=== PATIENT | female | born 1970 | race Caucasian/White ===

== ENCOUNTER 2017-02-16 21:31 | Emergency (ER) | payer MEDICAID ==
[~2017-02-16] VITALS: Ht 157.5 cm; Wt 57.8 kg
[~2017-02-16 21:31] MED LIST: ALPR0.25 PO; CELE50CA PO; FURO-92 PO; FURO-93 PO; GABA300C PO; METH-356 PO; OXYC10TA6 PO; SPIR50TA2 PO; SUMA100T3 PO; TIZA4CAP PO
[2017-02-16 21:33] VITALS: BP 119/72
[2017-02-16] MEDS ORDERED: SILVER SULF. CRM 1% , 25GM ONE (22:23)
[2017-02-16] MEDS ORDERED: SILVER SULF. CRM 1% , 25GM TP ONE (22:30)
== END 2017-02-16 22:40 | disposition home or self-care (01) ==
LOC: ED 22:35
DX: T23.151A Burn of first degree of right palm, initial encounter (principal); T23.161A Burn of first degree of back of right hand, initial encounter; T31.0 Burns involving less than 10% of body surface; X08.8XXA Exposure to other specified smoke, fire and flames, initial encounter; Y93.89 Activity, other specified; Y99.8 Other external cause status; Y92.89 Other specified places as the place of occurrence of the external cause
CPT/HCPCS: 16020

== ENCOUNTER 2017-03-19 17:55 | Emergency (ER) | payer MEDICAID ==
[~2017-03-19] VITALS: Ht 157.5 cm; Wt 56.4 kg
[2017-03-19 18:43] LABS: ASPARTATE AMINO TRANSFERASE 23 U/L (15-37); BLOOD UREA NITROGEN 12 mg/dL (7-18)
[2017-03-19 19:22] VITALS: BP 106/82
== END 2017-03-19 19:24 | disposition home or self-care (01) ==
LOC: ED 19:00
DX: R60.0 Localized edema (principal); Z88.5 Allergy status to narcotic agent; Z88.8 Allergy status to other drugs, medicaments and biological substances
CPT/HCPCS: 36415; 80053; 85025; 99285

== ENCOUNTER 2017-04-09 20:05 | Emergency (ER) | payer MEDICAID ==
[~2017-04-09] VITALS: Ht 157.5 cm; Wt 59.6 kg
[2017-04-09 20:06] VITALS: BP 100/72
== END 2017-04-09 20:52 | disposition home or self-care (01) ==
LOC: ED 20:15
DX: K02.9 Dental caries, unspecified (principal)
CPT/HCPCS: 99283

== ENCOUNTER 2017-05-02 14:13 | Emergency (ER) | payer MEDICAID ==
[~2017-05-02] VITALS: Ht 157.5 cm; Wt 56.4 kg
[2017-05-02 14:31] VITALS: BP 114/76
[2017-05-02] MEDS ORDERED: PROPARACAINE OPHTH 0.5%, 15ML ONE (14:54)
[2017-05-02] MEDS ORDERED: FLUORESCEIN OPHTHALMIC 1 MG STRIP ONE (14:54)
[2017-05-02] MEDS ORDERED: EYE WASH SOLUTION 120ML ONE (15:10)
== END 2017-05-02 16:20 | disposition home or self-care (01) ==
LOC: ED 15:16
DX: H57.11 Ocular pain, right eye (principal)
CPT/HCPCS: 99283

== ENCOUNTER 2017-10-06 15:58 | Emergency (ER) | payer MEDICAID ==
[~2017-10-06] VITALS: Ht 152.4 cm; Wt 61.0 kg
[~2017-10-06 15:58] MED LIST changes: -BUPIVACAINE/PF 0.5% ONE; -LIDOCAINE 1%, 20ML ONE; -TRIAMCINOLONE ACETONIDE 40 MG/ML, 1ML ONE
[2017-10-06 16:25] VITALS: BP 113/75
== END 2017-10-06 18:16 | disposition home or self-care (01) ==
LOC: ED 18:06
DX: S60.221A Contusion of right hand, initial encounter (principal); K21.9 Gastro-esophageal reflux disease without esophagitis; M19.90 Unspecified osteoarthritis, unspecified site; J45.909 Unspecified asthma, uncomplicated; Z90.721 Acquired absence of ovaries, unilateral; W19.XXXA Unspecified fall, initial encounter; Y93.89 Activity, other specified; Y92.410 Unspecified street and highway as the place of occurrence of the external cause; Y99.9 Unspecified external cause status
CPT/HCPCS: 99284

== ENCOUNTER → 2017-10-06 | Outpatient (CLI) | payer MEDICAID ==
[~2017-10-06] MED LIST changes: +BUPIVACAINE/PF 0.5% ONE; +LIDOCAINE 1%, 20ML ONE; +TRIAMCINOLONE ACETONIDE 40 MG/ML, 1ML ONE
== END | disposition home or self-care (01) ==
LOC: RAD 12:19
PROVIDERS: ATTEND Internal Medicine
DX: M12.852 Other specific arthropathies, not elsewhere classified, left hip (principal); M12.551 Traumatic arthropathy, right hip
CPT/HCPCS: 77002; J3301; J3490

== ENCOUNTER 2017-12-30 16:15 | Emergency (ER) | payer MEDICAID ==
[~2017-12-30] VITALS: Ht 157.5 cm; Wt 61.5 kg
[~2017-12-30 16:15] MED LIST changes: +BACL-19 PO; +CEPH-368 PO; +ESOM40CA PO; +OXYC5CAP2 PO; +PREG100C PO
[2017-12-30 16:30] VITALS: BP 129/81
== END 2017-12-30 19:05 | disposition home or self-care (01) ==
LOC: ED 18:27
DX: M48.02 Spinal stenosis, cervical region (principal); M54.2 Cervicalgia; J45.909 Unspecified asthma, uncomplicated; G89.29 Other chronic pain
CPT/HCPCS: 72050; 99284; J7512

== ENCOUNTER → 2018-01-22 | Outpatient (CLI) | payer MEDICAID | END | disposition home or self-care (01) | LOC: RAD 10:14 | PROVIDERS: ATTEND Physician Assistant | DX: K80.20 Calculus of gallbladder without cholecystitis without obstruction (principal); E04.2 Nontoxic multinodular goiter; J31.0 Chronic rhinitis; R68.81 Early satiety; F17.210 Nicotine dependence, cigarettes, uncomplicated | CPT/HCPCS: 76536; 76700 ==

== ENCOUNTER 2018-03-22 17:12 | Emergency (ER) | payer MEDICAID ==
[~2018-03-22] VITALS: Ht 157.5 cm; Wt 60.0 kg
[2018-03-22] MEDS ORDERED: METH-356 PO (18:21)
[2018-03-22] MEDS ORDERED: POLY17PO5 PO (18:21)
[2018-03-22] MEDS ORDERED: OXYC5CAP2 PO (18:21)
[2018-03-22 19:14] LABS: BASOPHILS # (AUTO) 0.01 x10^3/uL (0-0.1); BASOPHILS % (AUTO) 0 % (0-1); EOSINOPHILS # (AUTO) 0.11 x10^3/uL (0-0.4); EOSINOPHILS % (AUTO) 2 % (1-7); LYMPHOCYTES # (AUTO) 1.98 x10^3/uL (1-3.4); LYMPHOCYTES % (AUTO) 40 % (22-44); MD NO; MEAN CORPUSCULAR HEMOGLOBIN 30.4 pg (27.0-34.8); MEAN CORPUSCULAR HGB CONC 34.3 g/dL (32.4-35.8); MEAN CORPUSCULAR VOLUME 88.4 fL (80-100); MEAN PLATELET VOLUME 7.5 fL (7.4-10.4); MONOCYTES # (AUTO) 0.57 x10^3/uL (0.2-0.8); MONOCYTES % (AUTO) 12 % (2-9); NEUTROPHILS # (AUTO) 2.29 x10^3/uL (1.8-6.8); NEUTROPHILS % (AUTO) 46 % (42-75); PLATELET COUNT 247 x10^3/uL (130-400); RED BLOOD COUNT 4.66 x10^6/uL (3.82-5.3); RED CELL DISTRIBUTION WIDTH 14.1 % (9.6-15.2)
[2018-03-22] MEDS ORDERED: CLINDAMYCIN 300 MG CAPSULE ONE ×2 (19:21→19:25)
[2018-03-22 19:22] VITALS: BP 107/68
[2018-03-22] MEDS ORDERED: CLINDAMYCIN 300 MG CAPSULE PO ONE (19:30)
== END 2018-03-22 19:32 | disposition home or self-care (01) ==
LOC: ED 19:00
DX: L03.115 Cellulitis of right lower limb (principal); E07.9 Disorder of thyroid, unspecified; F17.210 Nicotine dependence, cigarettes, uncomplicated
CPT/HCPCS: 36415; 85025; 99285

== ENCOUNTER 2018-03-28 17:30 | Emergency (ER) | payer MEDICAID ==
[~2018-03-28] VITALS: Ht 157.5 cm; Wt 58.6 kg
[~2018-03-28 17:30] MED LIST changes: +POLY17PO5 PO; -SPIR50TA2 PO; +SPIR50TA4 PO
[2018-03-28 17:35] VITALS: BP 124/80
== END 2018-03-28 18:28 | disposition home or self-care (01) ==
LOC: ED 18:20
DX: S91.311A Laceration without foreign body, right foot, initial encounter (principal); K21.9 Gastro-esophageal reflux disease without esophagitis; J45.909 Unspecified asthma, uncomplicated; Z98.51 Tubal ligation status; X58.XXXA Exposure to other specified factors, initial encounter; Y93.89 Activity, other specified; Y92.89 Other specified places as the place of occurrence of the external cause; Y99.8 Other external cause status
CPT/HCPCS: 99281

== ENCOUNTER → 2018-06-18 | Outpatient (CLI) | payer MEDICAID | END | disposition home or self-care (01) | LOC: PETCFH 11:03 | PROVIDERS: ATTEND Internal Medicine Endocrinology, Diabetes & Metabolism | DX: E04.2 Nontoxic multinodular goiter (principal) | CPT/HCPCS: 78013; A9516 ==

== ENCOUNTER 2018-07-29 12:18 | Outpatient (CLI) | payer MEDICAID ==
[2018-07-29] MEDS ORDERED: ROPivacaine/PF 0.2%, 10 ML ONE (12:48)
[2018-07-29] MEDS ORDERED: BUPIVACAINE/PF 0.5% ONE (12:48)
[2018-07-29] MEDS ORDERED: LIDOCAINE-MPF 1%, 5ML ONE (12:48)
[2018-07-29] MEDS ORDERED: TRIAMCINOLONE ACETONIDE 40 MG/ML, 1ML ONE (12:48)
[2018-07-29] MEDS ORDERED: OMNIPAQUE 300 MG/ML, 10ML VIAL ONE (14:11)
== END 2018-08-05 10:26 | disposition home or self-care (01) ==
LOC: RAD 12:18
PROVIDERS: ATTEND Anesthesiology
DX: M16.12 Unilateral primary osteoarthritis, left hip (principal)
CPT/HCPCS: 20610; 77002; J3301; J3490; Q9967; J2795

== ENCOUNTER → 2018-09-09 | Outpatient (CLI) | payer MEDICAID ==
[~2018-09-09] MED LIST changes: +FENTANYL PF 100 MCG/2ML ONE; +FLUMAZENIL 0.1 MG/1 ML, 5ML ONE; -METH-356 PO; +METH10TA2 PO; +MIDAZOLAM 1 MG/ML, 5ML ONE; +NALOXONE 1 MG/ML, 2ML ONE
== END | disposition home or self-care (01) ==
LOC: RAD 08:17
PROVIDERS: ATTEND Radiology Diagnostic Radiology
DX: M50.322 Other cervical disc degeneration at C5-C6 level (principal); M50.323 Other cervical disc degeneration at C6-C7 level; M48.02 Spinal stenosis, cervical region; M25.551 Pain in right hip
CPT/HCPCS: 72141; 73721; 99156; 99157; J2250; J3010; J2310

== ENCOUNTER 2018-10-09 17:13 | Emergency (ER) | payer MEDICAID ==
[~2018-10-09] VITALS: Ht 157.5 cm; Wt 65.0 kg
[~2018-10-09 17:13] MED LIST changes: -FENTANYL PF 100 MCG/2ML ONE; -FLUMAZENIL 0.1 MG/1 ML, 5ML ONE; -MIDAZOLAM 1 MG/ML, 5ML ONE; -NALOXONE 1 MG/ML, 2ML ONE
[2018-10-09 17:14] VITALS: BP 148/90
[2018-10-09] MEDS ORDERED: METHOCARBAMOL 750 MG TABLET PO ONE (18:00)
--- NOTE | 2018-10-09 19:10 | NUR ---
REPORT TAKEN FROM NOAH PEREZ. PT IS AWAITING APPROPRIATELY SIZED C [facility]LLAR TO ARRIVE FROM [facility] AT THIS TIME.
== END 2018-10-09 19:28 | disposition home or self-care (01) ==
LOC: ED 19:22
DX: S39.012A Strain of muscle, fascia and tendon of lower back, initial encounter (principal); M54.12 Radiculopathy, cervical region; K21.9 Gastro-esophageal reflux disease without esophagitis; J45.909 Unspecified asthma, uncomplicated; G62.9 Polyneuropathy, unspecified; X58.XXXA Exposure to other specified factors, initial encounter; Y93.89 Activity, other specified; Y92.89 Other specified places as the place of occurrence of the external cause; Y99.8 Other external cause status
CPT/HCPCS: 99283; J7512

== ENCOUNTER → 2018-12-23 | Outpatient (CLI) | payer MEDICAID | END | disposition home or self-care (01) | LOC: RAD 16:32 | PROVIDERS: ATTEND Anesthesiology | DX: M16.12 Unilateral primary osteoarthritis, left hip (principal); M21.852 Other specified acquired deformities of left thigh ==

== ENCOUNTER 2019-01-12 08:41 | Outpatient (CLI) | payer MEDICAID ==
[2019-01-12] MEDS ORDERED: TRIAMCINOLONE ACETONIDE 40 MG/ML, 1ML ONE (09:08)
[2019-01-12] MEDS ORDERED: LIDOCAINE-MPF 1%, 5ML ONE ×2 (09:09→09:10)
[2019-01-12] MEDS ORDERED: BUPIVACAINE/PF 0.5% ONE (09:09)
== END 2019-01-12 23:59 | disposition home or self-care (01) ==
LOC: RAD 08:41
PROVIDERS: ATTEND Physical Medicine & Rehabilitation
DX: G89.29 Other chronic pain (principal); M25.552 Pain in left hip
CPT/HCPCS: 20610; 77002; J3301; S0020

== ENCOUNTER 2019-01-17 10:35 | Emergency (ER) | payer MEDICAID ==
[~2019-01-17] VITALS: Ht 157.5 cm; Wt 61.9 kg
[2019-01-17 10:41] VITALS: BP 140/87
--- NOTE | 2019-01-17 11:01 | NUR ---
pt c/o increase in chronic neck pain due to incresed cough. pt states "i think i have thrush from my inhaler." lung sounds clear. resps even and unlabored. Addendum: 01/17/19 at 1103 by GERTRUDIS "pt states my throat feels so raw"
--- NOTE | 2019-01-17 11:28 | NUR ---
pt back from x ray now
[2019-01-17] MEDS ORDERED: NYSTATIN 500,000 UNITS/5 ML UDC PO ONE (13:00)
== END 2019-01-17 13:14 | disposition home or self-care (01) ==
LOC: ED 11:55
DX: J06.9 Acute upper respiratory infection, unspecified (principal); B37.9 Candidiasis, unspecified; G89.29 Other chronic pain; K21.9 Gastro-esophageal reflux disease without esophagitis; J45.909 Unspecified asthma, uncomplicated; M19.90 Unspecified osteoarthritis, unspecified site; Z90.89 Acquired absence of other organs; Z90.721 Acquired absence of ovaries, unilateral
CPT/HCPCS: 71046; 99283

== ENCOUNTER 2019-01-21 20:40 | Emergency (ER) | payer MEDICAID ==
[~2019-01-21] VITALS: Ht 157.5 cm; Wt 59.4 kg
--- NOTE | 2019-01-21 21:16 | NUR ---
FIRST CONTACT WITH PT. PT WAS SEEN FOR THRUSH ON FRIDAY. PT HAS HAD DIARRHEA SINCE FRIDAY WITH LOWER BACK PAIN. PT HAS DECREASED URINATION. PT C/O N/ABD PAIN WELL. PT'S AOX4. RESPS EVEN AND UNLABORED. BP/SPO2 MONITORS IN PLACE. CALL LIGHT WITHIN REACH.
[2019-01-21 21:50] LABS: ALANINE AMINOTRANSFERASE 31 U/L (12-78); ALBUMIN 3.4 g/dL (3.4-5.0); ANION GAP 8 mmol/L (5-15); CALCIUM 7.9 mg/dL (8.5-10.1); CHLORIDE 113 mmol/L (98-107); CREATININE 1.02 mg/dL (0.55-1.02)
--- NOTE | 2019-01-21 21:50 | NUR ---
bedside [facility] at bedside. pt provided stool sample. this rn walked to lab.
[2019-01-21 21:52] LABS: ALKALINE PHOSPHATASE 98 U/L (45-117); BILIRUBIN,TOTAL 0.1 mg/dL (0.2-1.0)
--- NOTE | 2019-01-21 21:55 | NUR ---
pt wants to take her home meds for pain. edmd notified and edmd ok'd to take it.
[2019-01-21 22:06] LABS: MEAN PLATELET VOLUME 7.5 fL (7.4-10.4); PLATELET COUNT 186 x10^3/uL (130-400)
[2019-01-21 22:32] LABS: MD YES; MEAN CORPUSCULAR HEMOGLOBIN 30.4 pg (27.0-34.8); MEAN CORPUSCULAR HGB CONC 33.4 g/dL (32.4-35.8); MEAN CORPUSCULAR VOLUME 90.9 fL (80-100); RED BLOOD COUNT 4.72 x10^6/uL (3.82-5.3); RED CELL DISTRIBUTION WIDTH 14.4 % (9.6-15.2)
[2019-01-21 22:37] LABS: EOS#(MANUAL) 0.09 x10^3/uL (0.0-0.4); EOS% (MANUAL) 3 % (1-7); LYMPHS% (MANUAL) 29 % (22-44); METAMYELOCYTES# (MANUAL) 0.03 x10^3/uL (0-0); METAMYELOCYTES% (MANUAL) 1 % (0-1); MONOS% (MANUAL) 13 % (2-9); REACTIVE LYMPHS # (MANUAL) 0.09 x10^3/uL (0-0); REACTIVE LYMPHS % (MANUAL) 3 % (0-0); SEG#(MANUAL) 1.58 x10^3/uL (1.8-6.8); SEGS% (MANUAL) 51 % (42-75)
[2019-01-21 22:38] LABS: <PLATELET ESTIMATE> ADEQUATE; <PLT MORPHOLOGY> NORMAL PLT MORPH; <RBC MORPHOLOGY> NORMAL
--- NOTE | 2019-01-21 22:50 | NUR ---
pt provided warm blancket and pillow at this time.
[2019-01-21 22:51] LABS: CLOSTRIDIUM DIFFICILE ANTIGEN NEGATIVE; CLOSTRIDIUM DIFFICILE TOXIN NEGATIVE (Negative)
[2019-01-21] MEDS ORDERED: DICYCLOMINE 20 MG TABLET PO ONE (23:30)
[2019-01-21] MEDS ORDERED: DICYCLOMINE 20 MG TABLET ONE (23:36)
[2019-01-21 23:38] VITALS: BP 105/70
--- NOTE | 2019-01-21 23:40 | NUR ---
pt medicated per emar. pt tolerated well.
--- NOTE | 2019-01-22 00:24 | NUR ---
PT GIVEN DC INSTRUCTIONS AND SCRIPTS. PT EDUCATED REGARDING DC MEDICATIONS. PT'S AOX4. RESPS EVEN AND UNLABORED. PT AMB TO DC WITH STEADY GAIT. NO ACUTE DISTRESS AT DC.
== END 2019-01-22 00:25 | disposition home or self-care (01) ==
LOC: ED 21:14
DX: A09 Infectious gastroenteritis and colitis, unspecified (principal); F17.200 Nicotine dependence, unspecified, uncomplicated; K21.9 Gastro-esophageal reflux disease without esophagitis; J45.909 Unspecified asthma, uncomplicated
CPT/HCPCS: 36415; 80053; 83690; 85025; 87324; 99283

== ENCOUNTER 2019-08-09 07:17 | Outpatient (CLI) | payer MEDICAID ==
[2019-08-09] MEDS ORDERED: MIDAZOLAM 1 MG/ML, 5ML ONE (07:38)
[2019-08-09] MEDS ORDERED: FLUMAZENIL 0.1 MG/1 ML, 5ML ONE (07:38)
[2019-08-09] MEDS ORDERED: FENTANYL PF 100 MCG/2ML ONE (07:38)
[2019-08-09] MEDS ORDERED: NALOXONE 1 MG/ML, 2ML ONE (07:39)
== END 2019-08-09 23:59 | disposition home or self-care (01) ==
LOC: RAD 07:17
PROVIDERS: ATTEND Physical Medicine & Rehabilitation
DX: M48.02 Spinal stenosis, cervical region (principal); M54.13 Radiculopathy, cervicothoracic region; M25.78 Osteophyte, vertebrae; Z88.5 Allergy status to narcotic agent; Z88.8 Allergy status to other drugs, medicaments and biological substances
CPT/HCPCS: 72141; 99156; 99157; J2250; J3010; J2310

== ENCOUNTER 2019-09-24 18:26 | Outpatient (CLI) | payer MEDICAID ==
[~2019-09-24 18:26] MED LIST changes: +BUPIVACAINE/PF 0.5% ONE; +LIDOCAINE 1%, 10ML ONE; +TRIAMCINOLONE ACETONIDE 40 MG/ML, 1ML ONE
== END 2019-09-24 23:59 | disposition home or self-care (01) ==
LOC: RAD 18:26
PROVIDERS: ATTEND Physical Medicine & Rehabilitation
DX: M12.552 Traumatic arthropathy, left hip (principal)
CPT/HCPCS: 20610; 77002; J3301; J3490; S0020

== ENCOUNTER 2020-01-07 12:25 | Outpatient (CLI) | payer MEDICAID ==
[~2020-01-07 12:25] MED LIST changes: -BUPIVACAINE/PF 0.5% ONE; -LIDOCAINE 1%, 10ML ONE; -TRIAMCINOLONE ACETONIDE 40 MG/ML, 1ML ONE
[2020-01-07] MEDS ORDERED: ROPivacaine/PF 0.2%, 10 ML ONE (12:40)
[2020-01-07] MEDS ORDERED: LIDOCAINE-MPF 1%, 5ML ONE (12:40)
[2020-01-07] MEDS ORDERED: TRIAMCINOLONE ACETONIDE 40 MG/ML, 1ML ONE (12:40)
[2020-01-07] MEDS ORDERED: BUPIVACAINE/PF 0.5% ONE (12:41)
[2020-01-07] MEDS ORDERED: OMNIPAQUE 300 MG/ML, 10ML VIAL ONE (14:28)
== END 2020-01-07 23:59 | disposition home or self-care (01) ==
LOC: RAD 12:25
PROVIDERS: ATTEND Physical Medicine & Rehabilitation
DX: M16.12 Unilateral primary osteoarthritis, left hip (principal)
CPT/HCPCS: 20610; 77002; J3301; Q9967; S0020; J2795

== ENCOUNTER 2020-03-25 18:55 | Emergency (ER) | payer MEDICAID ==
[~2020-03-25] VITALS: Ht 157.5 cm; Wt 68.0 kg
[2020-03-25 19:10] VITALS: BP 138/73
[2020-03-25] MEDS ORDERED: DIPH,PERTUSS(ACELL),TET VAC/PF 0.5 ML IM-VACC ONE ×2 (19:30→21:12)
[2020-03-25] MEDS ORDERED: CARI350T PO (20:56)
== END 2020-03-25 21:32 | disposition home or self-care (01) ==
LOC: ED 21:01
DX: S01.301A Unspecified open wound of right ear, initial encounter (principal); J45.909 Unspecified asthma, uncomplicated; M19.90 Unspecified osteoarthritis, unspecified site; F17.210 Nicotine dependence, cigarettes, uncomplicated; Z90.89 Acquired absence of other organs; Z90.721 Acquired absence of ovaries, unilateral; X58.XXXA Exposure to other specified factors, initial encounter; Y93.89 Activity, other specified; Y92.89 Other specified places as the place of occurrence of the external cause; Y99.8 Other external cause status
CPT/HCPCS: 90471; 90715; 99283; 99406

== ENCOUNTER 2020-05-01 10:52 | Outpatient (CLI) | payer MEDICAID ==
[~2020-05-01 10:52] MED LIST changes: +CARI350T PO
[2020-05-01] MEDS ORDERED: MIDAZOLAM 1 MG/ML, 5ML ONE ×2 (12:33→13:02)
[2020-05-01] MEDS ORDERED: FENTANYL PF 100 MCG/2ML ONE (12:33)
== END 2020-05-01 23:59 | disposition home or self-care (01) ==
LOC: RAD 10:52
PROVIDERS: ATTEND Neurological Surgery
DX: G95.9 Disease of spinal cord, unspecified (principal); M50.023 Cervical disc disorder at C6-C7 level with myelopathy; M48.02 Spinal stenosis, cervical region; Z88.5 Allergy status to narcotic agent
CPT/HCPCS: 72141; 99156; 99157; J2250; J3010

== ENCOUNTER 2020-06-08 13:35 | Outpatient (CLI) | payer MEDICAID | END 2020-06-08 23:59 | disposition home or self-care (01) | LOC: LAB 13:35 | PROVIDERS: ATTEND Physician Assistant | DX: K21.9 Gastro-esophageal reflux disease without esophagitis (principal); R13.12 Dysphagia, oropharyngeal phase; K59.00 Constipation, unspecified; R19.7 Diarrhea, unspecified; R11.0 Nausea; M13.852 Other specified arthritis, left hip | CPT/HCPCS: 74018 ==

== ENCOUNTER 2020-06-09 20:25 | Emergency (ER) | payer MEDICAID ==
--- NOTE | 2020-06-09 21:01 | NUR ---
PT NOT IN LOBBY FOR TRIAGE
--- NOTE | 2020-06-09 21:11 | NUR ---
NIL X2
--- NOTE | 2020-06-09 21:28 | NUR ---
PT NOT IN LOBBY FOR TRIAGE
[2020-06-10] MEDS ORDERED: OXYC10TA6 PO (14:07)
[2020-06-10] MEDS ORDERED: ZOFRAN (14:09)
== END 2020-06-09 21:40 | disposition left against medical advice (07) ==
LOC: ED 21:00
DX: Z53.21 Procedure and treatment not carried out due to patient leaving prior to being seen by health care provider (principal)

== ENCOUNTER 2020-06-10 12:55 | Emergency (ER) | payer MEDICAID ==
[~2020-06-10] VITALS: Ht 157.5 cm; Wt 68.0 kg
--- NOTE | 2020-06-10 13:27 | NUR ---
ASSUMED CARE OF PATIENT. PATIENT REPORTS SHE HAD A XRAY RECENTLY AND HER GI DOCTOR CALLED AND SAID SHE HAD A BOWEL OBSTRUCTION AND TO COME TO THE ER. PT REPORTS SHE HAD N/V BUT IT HAS SINCE RESOLVED. PT DOES C/O EPIGASTRIC ABD PAIN. VS STABLE. NO ACUTE DISTRESS NOTED. CALL LIGHT IN PLACE. WILL CONTINUE TO MONITOR.
[2020-06-10 13:57] LABS: BASOPHILS % (AUTO) 1 % (0-1); EOSINOPHILS % (AUTO) 2 % (1-7); LYMPHOCYTES % (AUTO) 40 % (22-44); MEAN CORPUSCULAR HEMOGLOBIN 29.4 pg (27.0-34.8); MEAN CORPUSCULAR HGB CONC 33.6 g/dL (32.4-35.8); MEAN PLATELET VOLUME 7.3 fL (7.4-10.4); MONOCYTES % (AUTO) 15 % (2-9); NEUTROPHILS % (AUTO) 43 % (42-75); PLATELET COUNT 211 x10^3/uL (130-400); RED BLOOD COUNT 4.35 x10^6/uL (3.82-5.3); RED CELL DISTRIBUTION WIDTH 14.3 % (9.6-15.2)
[2020-06-10 14:00] LABS: MD NO
[2020-06-10] MEDS ORDERED: SODIUM CHLORIDE 0.9% 1,000ML IVBOLUS ONE (14:00)
[2020-06-10] MEDS ORDERED: SODIUM CHLORIDE FLUSH 10ML SYR IVF ONE (14:00)
[2020-06-10] MEDS ORDERED: OXYC10TA6 PO (14:07)
[2020-06-10 14:09] LABS: ALANINE AMINOTRANSFERASE 15 U/L (12-78); ALBUMIN 3.5 g/dL (3.4-5.0); ANION GAP 7 mmol/L (5-15); CALCIUM 8.8 mg/dL (8.5-10.1); CHLORIDE 105 mmol/L (98-107); CREATININE 0.78 mg/dL (0.55-1.02)
[2020-06-10] MEDS ORDERED: ZOFRAN (14:09)
[2020-06-10 14:11] LABS: ALKALINE PHOSPHATASE 95 U/L (45-117); BILIRUBIN,TOTAL 0.7 mg/dL (0.2-1.0)
[2020-06-10] MEDS ORDERED: OMNIPAQUE 350 MG/ML, 100ML BOTTLE ONE (14:34)
--- NOTE | 2020-06-10 14:43 | NUR ---
PT BACK FROM CT. UA SENT. PT RESTING IN ROOM. VS STABLE. NO ACUTE DISTRESS NOTED. CALL LIGHT IN PLACE. WILL CONTINUE TO MONITOR.
[2020-06-10 15:21] VITALS: BP 121/67
[2020-06-10 15:26] LABS: MICROSCOPIC NOT IND
--- NOTE | 2020-06-10 15:44 | NUR ---
DR REBOLLEDO IN ROOM
--- NOTE | 2020-06-10 16:21 | NUR ---
Patient given discharge instructions and they have confirmed that they understand the instructions. Patient ambulatory with steady gait.
== END 2020-06-10 16:22 | disposition home or self-care (01) ==
LOC: ED 14:52
DX: A04.9 Bacterial intestinal infection, unspecified (principal); R10.84 Generalized abdominal pain; R11.2 Nausea with vomiting, unspecified; R19.7 Diarrhea, unspecified; J45.909 Unspecified asthma, uncomplicated; K21.9 Gastro-esophageal reflux disease without esophagitis
CPT/HCPCS: 36415; 74177; 80053; 81003; 83690; 85025; 96360; 96361; 99285; J7030; Q9967

== ENCOUNTER 2020-11-16 12:06 | Outpatient (CLI) | payer MEDICAID ==
[~2020-11-16 12:06] MED LIST changes: +ZOFRAN
[2020-11-16] MEDS ORDERED: NALOXONE 1 MG/ML, 2ML ONE (13:09)
[2020-11-16] MEDS ORDERED: FENTANYL PF 100 MCG/2ML ONE ×2 (13:09)
[2020-11-16] MEDS ORDERED: FLUMAZENIL 0.1 MG/1 ML, 5ML ONE (13:09)
[2020-11-16] MEDS ORDERED: MIDAZOLAM 1 MG/ML, 5ML ONE ×2 (13:09)
== END 2020-11-16 23:59 | disposition home or self-care (01) ==
LOC: RAD 12:06
PROVIDERS: ATTEND Nurse Practitioner Family
DX: M50.30 Other cervical disc degeneration, unspecified cervical region (principal); M48.02 Spinal stenosis, cervical region; M25.78 Osteophyte, vertebrae; I10 Essential (primary) hypertension; J45.909 Unspecified asthma, uncomplicated; Z88.5 Allergy status to narcotic agent
CPT/HCPCS: 72141; 99156; 99157; J2250; J3010; J2310

== ENCOUNTER 2021-02-26 07:21 | Outpatient (CLI) | payer MEDICAID ==
[2021-02-26] MEDS ORDERED: ROPivacaine/PF 0.2%, 10 ML ONE ×2 (07:37→07:38)
[2021-02-26] MEDS ORDERED: BUPIVACAINE/PF 0.5% ONE (07:37)
[2021-02-26] MEDS ORDERED: LIDOCAINE-MPF 1%, 5ML ONE ×2 (07:37)
[2021-02-26] MEDS ORDERED: TRIAMCINOLONE ACETONIDE 40 MG/ML, 1ML ONE (07:38)
[2021-02-26] MEDS ORDERED: OMNIPAQUE 300 MG/ML, 10ML VIAL ONE (10:23)
== END 2021-02-26 23:59 | disposition home or self-care (01) ==
LOC: RAD 07:21
PROVIDERS: ATTEND Physical Medicine & Rehabilitation
DX: M12.552 Traumatic arthropathy, left hip (principal)
CPT/HCPCS: 20610; 77002; J3301; Q9967; S0020; J2795